=== PATIENT | male | born 1980 | race African-American/Black ===

== ENCOUNTER 2018-11-21 20:04 | Emergency (ER) | payer SELFPAY | END 2018-11-21 20:44 | disposition home or self-care (01) | LOC: MADERS 20:04 | DX: S61.402A Unspecified open wound of left hand, initial encounter (principal); S00.01XA Abrasion of scalp, initial encounter; V89.2XXA Person injured in unspecified motor-vehicle accident, traffic, initial encounter | CPT/HCPCS: 99283 ==